=== PATIENT | female | born 1955 | race Caucasian/White ===

== ENCOUNTER 2018-05-25 16:17 | Inpatient (IN) | payer MEDICARE, OTHER ==
[2018-05-25] MEDS ORDERED: METHYLPREDNISOLONE PF 125MG/VIAL IVP ONE (16:18)
[2018-05-25] MEDS ORDERED: 0.9 % SODIUM CHLORIDE 1000ML 1,000 ML IV PRN (16:18)
[2018-05-25] MEDS ORDERED: IPRATROPIUM/ALBUTEROL (0.5MG/3MG) NEB INH ONE (16:18)
--- NOTE | 2018-05-25 16:20 | Emergency Department Record ---
History of Present Illness - General Chief Complaint: Shortness of breath Stated Complaint: BELLA Time Seen by Provider: 05/25/18 16:18 - History of Present Illness Initial Comments: dyspnea and cough which started 7 days ago and she is coughing up yellow sputum and history of smoking and she is cutting back to 3 cigs per day and has a 60 pack year history of smoking. Primary Dr. Rodriguez - Related Data Home Medications Medication Instructions Recorded Confirmed Last Taken Albuterol Sulfate [Ventolin Hfa] 1 - 2 puff IH .EVERY 4-6 HOURS PRN 05/25/1801/05 Unknown Budesonide/Formoterol Fumarate 10.2 gm IH BID 05/25/18 05/25/18 Unknown [Symbicort 160-4.5 Mcg Inhaler] Cholecalciferol (Vitamin D3) 2,000 unit PO DAILY 05/25/18 05/25/18 Unknown [Vitamin D3] Hydrocodone/APAP 7.5/325Mg [[place] 1 each PO Q6H PRN 05/25/18 05/25/18 Unknown 7.5MG/325Mg] Montelukast Sodium [Singulair] 10 mg PO QHS 05/25/18 05/25/18 Unknown Allergies Allergy/AdvReac Type Severity Reaction Status Date / Time No Known Drug Allergies Allergy Verified 05/25/18 16:26 Review of Systems Reviewed: No additional complaints except as noted below Constitutional: Reports: As per HPI. Denies: Chills, Fever, Malaise, Night sweats, Weakness, Weight change Eyes: Reports: As per HPI. Denies: Eye discharge, Eye pain, Photophobia, Vision change ENT: Reports: As per HPI. Denies: Congestion, Dental pain, Ear pain, Epistaxis , Hearing loss, Throat pain Respiratory: Reports: As per HPI, Cough, Dyspnea, Wheezes. Denies: Hemoptysis, Stridor Cardiovascular: Reports: As per HPI. Denies: Arrhythmia, Chest pain, Dyspnea on exertion, Edema, Murmurs, Orthopnea, Palpitations, Paroxysmal nocturnal dyspnea, Rheumatic Fever, Syncope Endocrine: Reports: As per HPI. Denies: Fatigue, Heat or cold intolerance, Polydipsia, Polyuria Gastrointestinal: Reports: As per HPI. Denies: Abdominal pain, Constipation, Diarrhea, Hematemesis, Hematochezia, Melena, Nausea, Vomiting Genitourinary: Reports: As per HPI. Denies: Abnormal menses, Discharge, Dyspareunia, Dysuria, Frequency, Hematuria, Incontinence, Retention, Urgency Musculoskeletal: Reports: As per HPI. Denies: Arthralgia, Back pain, Gout, Joint swelling, Myalgia, Neck pain Skin: Reports: As per HPI. Denies: Bruising, Change in color, Change in hair/ nails, Lesions, Pruritus, Rash Neurological: Reports: As per HPI. Denies: Abnormal gait, Confusion, Headache, Numbness, Paresthesias, Seizure, Tingling, Tremors, Vertigo, Weakness Psychiatric: Reports: As per HPI. Denies: Anxiety, Auditory hallucinations, Depression, Homicidal thoughts, Suicidal thoughts, Visual hallucinations Hematological/Lymphatic: Reports: As per HPI. Denies: Anemia, Blood Clots, Easy bleeding, Easy bruising, Swollen glands Physical Exam - General General Appearance: Alert, Oriented x3, Cooperative, Moderate distress - Head Head exam: Normal inspection - Eye Eye exam: Normal appearance, PERRL Pupils: Normal accommodation - ENT ENT exam: Normal exam, Mucous membranes moist, Normal external ear exam, Normal orophraynx, TM's normal bilaterally Ear exam: Normal external inspection. negative: External canal tenderness Nasal Exam: Normal inspection. negative: Discharge, Sinus tenderness Mouth exam: Normal external inspection, Tongue normal Teeth exam: Normal inspection. negative: Dental caries Throat exam: Normal inspection. negative: Tonsillar erythema, Tonsillar exudate - Neck Neck exam: Normal inspection, Full ROM. negative: Tenderness - Respiratory Respiratory exam: Wheezes. negative: Respiratory distress - Cardiovascular Cardiovascular Exam: Regular rate, Normal rhythm, Normal heart sounds - GI/Abdominal GI/Abdominal exam: Soft, Normal bowel sounds. negative: Tenderness - Rectal Rectal exam: Deferred - exam: Deferred - Extremities Extremities exam: Normal inspection, Full ROM, Normal capillary refill. negative: Tenderness - Back Back exam: Reports: Normal inspection, Full ROM. Denies: Muscle spasm, Rash noted, Tenderness - Neurological Neurological exam: Alert, Normal gait, Oriented X3, Reflexes normal - Psychiatric Psychiatric exam: Normal affect, Normal mood - Skin Skin exam: Dry, Intact, Normal color, Warm Course - Reevaluation(s) Reevaluation #1: 05/25/18 19:24 BNP 597 probably from right sided heart failure 05/25/18 19:24 Reevaluation #2: discussed case with Dr. Chavarria and will admit 05/25/18 19:26 Medical Decision Making - Data Complexity MDM Data: Labs Ordered and/or Reviewed (wbc 14,600), X-Ray Ordered and/or Reviewed (CTA chest no PE and interstitual changes consistent with pneumonia and she also has adenopathy in mediastinum) - Lab Data Result diagrams: 05/25/18 16:25 05/25/18 16:18 Disposition Clinical Impression: Tobacco abuse COPD (chronic obstructive pulmonary disease) with emphysema Qualifiers: Emphysema type: panlobular Qualified Code(s): J43.1 - Panlobular emphysema Pneumonia Qualifiers: Pneumonia type: due to unspecified organism Laterality: bilateral Lung location : lower lobe of lung Qualified Code(s): J18.1 - Lobar pneumonia, unspecified organism Decision to Admit: Admit from ER Forms: Patient Portal Access Time of Disposition: 19:26 Quality - Quality Measures Quality Measures: N/A - Blood Pressure Screening Does Patient Have Any of the Following: No Blood Pressure Classification: Pre-Hypertensive BP Reading Systolic Measurement: 134 Diastolic Measurement: 87 Screening for High Blood Pressure: < Pre-Hypertensive BP, F/U Documented > [ [id number]] Pre-Hypertensive Follow-up Interventions: Referral to alternative/primary care provider.
[2018-05-25 16:52] LABS: HEMOGLOBIN 14.1 gm/dl (11.6-16.0); MEAN CELL VOLUME 91.7 fl (81-97); MEAN CORPUSCULAR HEMOGLOBIN 29.4 pg (27-33); MEAN PLATELET VOLUME 8.3 fl (7.4-10.4); PLATELET COUNT 387 K/uL (130-400); RED CELL DISTRIBUTION WIDTH 15.4 % (11.5-14.5); WHITE BLOOD COUNT W/O DIFF 14.6 K/uL (4.2-12.2)
[2018-05-25 16:58] LABS: BLOOD UREA NITROGEN 23 mg/dL (8-23); CREATININE 0.7 mg/dL (0.5-0.9); EST GLOMERULAR FILTRATION RATE > 60 mL/min
[2018-05-25] MEDS ORDERED: ALBUTEROL SULFATE (0.083%) 2.5 MG/3 ML NEB INH ONE (16:58)
[2018-05-25 17:01] LABS: GLUCOSE,RANDOM 162 mg/dL (74-109)
[2018-05-25 17:05] LABS: PARTIAL THROMBOPLASTIN TIME 29.1 SECONDS (24.5-39.1)
[2018-05-25] MEDS ORDERED: ASPIRIN 81 MG CHEWABLE TABLET PO ONE (18:42)
[2018-05-25] MEDS ORDERED: CEFTRIAXONE SODIUM 1 GM in 0.9 % SODIUM CHLORIDE 100ML 100 ML IVPB ONE (19:10)
[2018-05-25] MEDS ORDERED: AZITHROMYCIN 500 MG TABLET PO ONE (19:10)
[2018-05-25] MEDS ORDERED: ACETAMINOPHEN 500 MG TABLET PO PRN (20:10)
[2018-05-25] MEDS: CEFTRIAXONE SODIUM 1 GM in 0.9 % SODIUM CHLORIDE 100ML 100 ML IVPB SCH (21:20)
[2018-05-25] MEDS: METHYLPREDNISOLONE PF 125MG/VIAL IVP SCH (21:44)
[2018-05-25] MEDS: MONTELUKAST SODIUM 10MG TABLET PO SCH (22:30)
[2018-05-25] MEDS: IPRATROPIUM/ALBUTEROL (0.5MG/3MG) NEB INH SCH (22:40)
[2018-05-25] MEDS ORDERED: IBUPROFEN 400 MG TABLET PO PRN (22:57)
[2018-05-26] MEDS: METHYLPREDNISOLONE PF 125MG/VIAL IVP SCH ×3 (04:10→20:30)
[2018-05-26] MEDS: IPRATROPIUM/ALBUTEROL (0.5MG/3MG) NEB INH SCH ×5 (06:11→22:12)
[2018-05-26 06:14] LABS: BASO % 0.2 % (0-6); HEMATOCRIT 43.9 % (35.0-47.0); HEMOGLOBIN 13.7 gm/dl (11.6-16.0); LYMPH % 8.2 % (16-45); MEAN CELL VOLUME 94.6 fl (81-97); MEAN CORPUSCULAR HEMOGLOBIN 29.5 pg (27-33); MEAN CORPUSCULAR HGB CONC 31.2 g/dl (32-36); MEAN PLATELET VOLUME 8.3 fl (7.4-10.4); MONO % 2.9 % (0-9); PLATELET COUNT 352 K/uL (130-400); RED BLOOD COUNT 4.64 M/uL (3.80-5.40); RED CELL DISTRIBUTION WIDTH 15.5 % (11.5-14.5); WHITE BLOOD COUNT W/O DIFF 13.3 K/uL (4.2-12.2)
[2018-05-26 06:27] LABS: BLOOD UREA NITROGEN 26 mg/dL (8-23); CREATININE 0.7 mg/dL (0.5-0.9); EST GLOMERULAR FILTRATION RATE > 60 mL/min; GLUCOSE,RANDOM 161 mg/dL (74-109)
[2018-05-26] MEDS: ALBUTEROL SULFATE (0.083%) 2.5 MG/3 ML NEB INH PRN ×2 (08:28→20:00)
[2018-05-26] MEDS: CEFTRIAXONE SODIUM 1 GM in 0.9 % SODIUM CHLORIDE 100ML 100 ML IVPB SCH ×2 (08:44→20:17)
[2018-05-26] MEDS ORDERED: AZITHROMYCIN 500 MG TABLET PO SCH (10:00)
[2018-05-26] MEDS: ENOXAPARIN 40 MG/0.4 ML SYR SC SCH (10:26)
[2018-05-26] MEDS ORDERED: 0.9 % SODIUM CHLORIDE 1000ML 1,000 ML IV ONE (10:56)
--- NOTE | 2018-05-26 11:07 | History & Physical ---
History of Present Illness - Date of Service Date of Service for History & Physical: 05/26/18 - History of Present Illness Admitting Diagnosis: copd with exacerbation. pneumonia bilateral. tobacco use disorder History of Present Illness: PMHx: COPD, Nicotine dependence, Chronic pain. Pt is a poor historian. ED course: She states that her sister got sick and roughly 4-5 days later she started to get sick. She initially complained of cough with white sputum, pharyngitis, runny nose. She states that she came to the ED when she started to feel SOB and had trouble breathing. She smokes roughly 4-5 cigarettes daily. She has gone down from 08/22 PPD. Vitals: P:120, RR: 22, O2: 76 on RA, T: afebrile Labs: D-Dimer +, Increased anion gap, Increased WBC 14.6, Increased BNP Imaging: CT lungs showed possible b/l infiltrates, no PE Given: 4L NC, Ceftriaxone, Azithromycin, Solumedrol, Duonebs Admitted for hypoxia 09/22 to COPD exacerbation 2 to b/l PNA 05/26/18: Today pt still having SOB, but states that she feels much better than yesterday. She states that yesterday she couldn't even talk but today is able to have a conversion. No other complaints. Travel Screening - Travel/Exposure Within Last 30 Days Have you traveled within the last 30 days?: No - Travel/Exposure Within Last Year Have you traveled outside the [place] in the last year?: No - Additonal Travel Details Have you been exposed to anyone with a communicable illness?: No - Travel Symptoms Symptom Screening: None Review of Systems Constitutional: Denies: Chills, Fever Eyes: Denies: Vision change ENT: Reports: Congestion, Throat pain. Denies: Ear pain Respiratory: Reports: Cough, Dyspnea, Wheezes. Denies: Hemoptysis, Stridor Cardiovascular: Denies: Arrhythmia, Chest pain, Edema, Murmurs, Palpitations, Paroxysmal nocturnal dyspnea, Rheumatic Fever, Syncope Endocrine: Denies: Polyuria Gastrointestinal: Denies: Abdominal pain, Constipation, Diarrhea, Hematemesis, Nausea, Vomiting Genitourinary: Denies: Dysuria, Frequency Musculoskeletal: Reports: Myalgia (b/l arms, chronic). 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 - ENDOCRINE Hx Endocrine Disorders: No Hx Diabetes: No Hx Thyroid Disease: No - MUSCULOSKELETAL Hx Musculoskeletal Disorders: No - PSYCH Hx Psych Problems: No - HEMATOLOGY/ONCOLOGY Hx Hematology/Oncology Disorders: No Family Medical History Any Significant Family History?: No H&P Meds/Allergies - Allergies Allergies: Allergies Allergy/AdvReac Type Severity Reaction Status Date / Time No Known Drug Allergies Allergy Verified 05/25/18 16:26 - Home Medications Home Medications Medication Instructions Recorded Confirmed Last Taken Albuterol Sulfate [Ventolin Hfa] 1 - 2 puff IH .EVERY 4-6 HOURS PRN 05/25/1801/05 Unknown Budesonide/Formoterol Fumarate 10.2 gm IH BID 05/25/18 05/25/18 Unknown [Symbicort 160-4.5 Mcg Inhaler] Cholecalciferol (Vitamin D3) 2,000 unit PO DAILY 05/25/18 05/25/18 Unknown [Vitamin D3] Hydrocodone/APAP 7.5/325Mg [[place] 1 each PO Q6H PRN 05/25/18 05/25/18 Unknown 7.5MG/325Mg] Montelukast Sodium [Singulair] 10 mg PO QHS 05/25/18 05/25/18 Unknown - Active Medications Active Medications: Current Medications Acetaminophen (Tylenol 500mg Tab) 500 mg PO Q6H PRN PRN Reason: PAIN - MILD(1-4)/FEVER Hydrocodone Bitart/Acetaminophen ([place] 7.5mg/325mg) 1 each PO Q4H PRN PRN Reason: PAIN - MILD(1-4)/FEVER Albuterol Sulfate () 2.5 mg INH RESP.Q1H PRN PRN Reason: DIFFICULTY IN BREATHING Last Admin: 05/26/18 08:28 Dose: 2.5 mg Albuterol/Ipratropium (Duoneb) 3 ml INH RESP.Q4H.[place] [facility] Last Admin: 05/26/18 10:08 Dose: 3 ml Azithromycin (Zithromax) 250 mg PO DAILY [facility] Enoxaparin Sodium (Lovenox) 40 mg SC DAILY [facility] Last Admin: 05/26/18 10:26 Dose: 40 mg Ceftriaxone Sodium 1 gm/ (Sodium Chloride) 100 mls @ 100 mls/hr IVPB Q12H [facility] Stop: 05/30/18 20:11 Last Admin: 05/26/18 08:44 Dose: 100 mls/hr Sodium Chloride () 1,000 mls @ 83 mls/hr IV .Q12H3M ONE Stop: 05/26/18 22:58 Ibuprofen (Motrin 400mg) 800 mg PO Q8H PRN PRN Reason: PAIN - MILD TO MODERATE (1-7) Methylprednisolone Sodium Succinate (Solu-Medrol) 60 mg IVP Q8H [facility] Stop: 05/27/18 00:00 Last Admin: 05/26/18 04:10 Dose: 60 mg Montelukast Sodium (Singulair) 10 mg PO QHS [facility] Last Admin: 05/25/18 22:30 Dose: 10 mg Prednisone (Prednisone 20mg) 60 mg PO DAILYWM [facility] Physical Exam - Vital Signs Vital Signs: Vital Signs - Last 24 Hrs Temp Pulse Pulse Pulse Resp BP BP 05/26/18 10:09 97 H 20 05/26/18 09:34 91 H 24 05/26/18 09:24 98.1 F 100 H 24 05/26/18 08:54 107 H 22 05/26/18 08:28 88 22 05/26/18 06:52 115 H 22 05/26/18 06:10 28 H 05/26/18 06:00 98.3 F 101 H 32 H 133/78 05/26/18 00:00 98.2 F 116 H 24 118/80 05/25/18 22:41 112 H 32 H 05/25/18 21:30 26 H 05/25/18 21:00 118 H 28 H 05/25/18 19:46 117 H 28 H 05/25/18 18:59 126 H 30 H 05/25/18 18:05 121 H 22 135/90 05/25/18 17:02 126 H 20 05/25/18 16:34 114 H 24 05/25/18 16:30 98.6 F 05/25/18 16:18 120 H 22 134/87 BP Pulse Ox 05/26/18 10:09 94 L 05/26/18 09:34 92 L 05/26/18 09:24 136/75 91 L 05/26/18 08:54 05/26/18 08:28 96 05/26/18 06:52 98 05/26/18 06:10 94 L 05/26/18 06:00 80 L 05/26/18 00:00 96 05/25/18 22:41 94 L 05/25/18 21:30 94 L 05/25/18 21:00 05/25/18 19:46 132/75 92 L 05/25/18 18:59 92 L 05/25/18 18:05 94 L 05/25/18 17:02 95 05/25/18 16:34 94 L 05/25/18 16:30 05/25/18 16:18 76 L - General General Appearance: Alert, Oriented x3, Cooperative, Mild distress (with conversion will increase in coughing) - Head Head exam: Normal inspection - Eye Eye exam: Normal appearance, EOMI. negative: Scleral icterus Pupils: Normal accommodation - ENT ENT exam: Normal exam, Mucous membranes moist, Normal external ear exam. negative: Normal orophraynx (erythema pharynx) Ear exam: Normal external inspection. negative: External canal tenderness Nasal Exam: Normal inspection. negative: Discharge, Sinus tenderness Mouth exam: Normal external inspection, Tongue normal - Neck Neck exam: Normal inspection, Full ROM. negative: Tenderness - Respiratory Respiratory exam: Prolonged expiratory, Wheezes (throughout all lung kennedy). negative: Decreased breath sounds, Respiratory distress - Cardiovascular Cardiovascular Exam: Normal rhythm, Normal heart sounds, Tachycardia - GI/Abdominal GI/Abdominal exam: Soft, Hypoactive bowel sounds. negative: Tenderness - Rectal Rectal exam: Deferred - exam: Deferred - Extremities Extremities exam: Normal inspection, Full ROM, Normal capillary refill. negative: Tenderness - Back Back exam: Reports: Normal inspection, Full ROM. Denies: Rash noted - Neurological Neurological exam: Alert, Oriented X3 - Psychiatric Psychiatric exam: Normal affect, Normal mood - Skin Skin exam: Dry, Intact, Normal color, Warm Results - Labs Result Diagrams: 05/26/18 06:05 05/26/18 06:05 Labs Last 24 Hours: Laboratory Results - last 24 hr 05/25/18 05/25/18 05/25/18 16:18 16:25 16:25 WBC 14.6 H RBC 4.80 Hgb 14.1 Hct 44.0 MCV 91.7 MCH 29.4 MCHC 32.0 RDW 15.4 H Plt Count 387 MPV 8.3 Neutrophils % 83.0 H Band Neutrophils % Lymphocytes % Monocytes % Eosinophils % Not Reportable Basophils % Not Reportable Lymphocytes 10.0 L Monocytes 7.0 Basophils Eosinophil Count APTT 29.1 D-Dimer 0.74 H Sodium 140 Potassium 4.2 Chloride 94 L Carbon Dioxide 29.0 Anion Gap 17.0 H BUN 23 Creatinine 0.7 Estimated GFR > 60 Random Glucose 162 H Calcium 9.4 Troponin T < 0.010 NT-Pro-B Natriuret Pep 05/25/18 05/25/18 05/25/18 16:35 16:36 17:52 WBC RBC Hgb Hct MCV MCH MCHC RDW Plt Count MPV Neutrophils % Band Neutrophils % Lymphocytes % Monocytes % Eosinophils % Basophils % Lymphocytes Monocytes Basophils Eosinophil Count APTT D-Dimer Cancelled Sodium Potassium Chloride Carbon Dioxide Anion Gap BUN Creatinine Estimated GFR Random Glucose Calcium Troponin T Cancelled NT-Pro-B Natriuret Pep 597.20 H 05/26/18 05/26/18 06:05 06:05 WBC 13.3 H RBC 4.64 Hgb 13.7 Hct 43.9 MCV 94.6 MCH 29.5 MCHC 31.2 L RDW 15.5 H Plt Count 352 MPV 8.3 Neutrophils % 86.0 H Band Neutrophils % 2.0 Lymphocytes % 8.2 L Monocytes % 2.9 Eosinophils % 0.0 Basophils % 0.2 Lymphocytes 9.0 L Monocytes 3.0 Basophils 0.0 Eosinophil Count 0.0 APTT D-Dimer Sodium 145 Potassium 4.8 H Chloride 101 Carbon Dioxide 35.0 H Anion Gap 9.0 BUN 26 H Creatinine 0.7 Estimated GFR > 60 Random Glucose 161 H Calcium 9.6 Troponin T NT-Pro-B Natriuret Pep VTE H&P Assessment - Risk for VTE Risk for VTE: Yes Risk Level: High Risk Assessment Date: 05/26/18 Risk Assessment Time: 11:15 VTE Orders Placed or Will Be Placed: Yes Plan - Inpatient Certification Inpatient Certification: Admit to inpatient care: Based on my medical assessment, after consideration of patient's risk factors (age, co-morbidities and patient presenting symptoms and acuity), I expect that this patient will remain in the hospital greater than or equal to two midnights and that the services needed warrant inpatient care because: Patient Risk Factors: [] Estimated length of stay: [] The patient may reasonably be expected to be discharged or transferred to a hospital within 96 hours after admission to [facility]. Services needed: [] Post hospital care (if known): [] I certify that my determination is in accordance with my understanding of Medicare requirements for reasonable and necessary inpatient services. - Detailed Diagnosis and Plan (1) Pneumonia Current Visit: Yes Status: Acute Qualifiers: Pneumonia type: due to unspecified organism Laterality: bilateral Lung location: lower lobe of lung Qualified Code(s): J18.1 - Lobar pneumonia, unspecified organism Base Code: J18.9 - PNEUMONIA, UNSPECIFIED ORGANISM Priority: High Comment: 05/25/18 - Rocephin 1g Q 12 hours - Azithromycin 500mg x 2 doses given, switch to 250mg for next dose. - O2 with venti mask, given that pt is mouth breather. - Keep 02 sats b/t 88-92% given h/o COPD - Gentle fluids @ 83ml/hr, monitor for fluid overload given mildly elevated BNP - although pt doesn't have h/o CHF and no swelling on exam. - Rpt CXR ordered. (2) COPD with exacerbation Current Visit: Yes Status: Acute Base Code: J44.1 - CHRONIC OBSTRUCTIVE PULMONARY DISEASE W (ACUTE) EXACERBATION Priority: High Comment: 05/25/18 - Continue duoneb and albuterol per resp - Solumedrol x 48 hours. - Switch to prednisone tomorrow. (3) Tobacco abuse Current Visit: Yes Status: Chronic Base Code: Z72.0 - TOBACCO USE Comment : 05/25/18 - No nicotine patches needed given 4-5 ciggs daily. (4) Chronic pain Current Visit: Yes Status: Chronic Base Code: G89.29 - OTHER CHRONIC PAIN Priority: Medium Comment: 05/25/18 - Pt is poor historian and just claims b/l arm pain. - Continue home meds as prescribed. - Iburpofen also available PRN - Disposition Home once stable and transitioned to oral medications.
[2018-05-26] MEDS: HYDROCODONE/APAP 7.5/325MG TABLET PO PRN (20:40)
[2018-05-26] MEDS: FLUTICASONE PROPIONATE 50MCG NASAL 16 GM BTL SCH (22:16)
[2018-05-26] MEDS: GUAIFENESIN 1,200 MG TABLET PO SCH (22:16)
[2018-05-26] MEDS: MONTELUKAST SODIUM 10MG TABLET PO SCH (22:16)
[2018-05-27] MEDS: ALBUTEROL SULFATE (0.083%) 2.5 MG/3 ML NEB INH PRN (04:46)
[2018-05-27] MEDS: IPRATROPIUM/ALBUTEROL (0.5MG/3MG) NEB INH SCH ×5 (06:14→23:25)
[2018-05-27 06:24] LABS: BASO % 0.2 % (0-6); HEMATOCRIT 41.8 % (35.0-47.0); HEMOGLOBIN 12.5 gm/dl (11.6-16.0); LYMPH % 9.3 % (16-45); MEAN CELL VOLUME 96.5 fl (81-97); MEAN CORPUSCULAR HEMOGLOBIN 28.9 pg (27-33); MEAN CORPUSCULAR HGB CONC 29.9 g/dl (32-36); MEAN PLATELET VOLUME 8.1 fl (7.4-10.4); MONO % 4.9 % (0-9); PLATELET COUNT 335 K/uL (130-400); RED BLOOD COUNT 4.33 M/uL (3.80-5.40); RED CELL DISTRIBUTION WIDTH 15.6 % (11.5-14.5); WHITE BLOOD COUNT W/O DIFF 17.3 K/uL (4.2-12.2)
[2018-05-27 06:32] LABS: BLOOD UREA NITROGEN 33 mg/dL (8-23); CREATININE 0.6 mg/dL (0.5-0.9); EST GLOMERULAR FILTRATION RATE > 60 mL/min; GLUCOSE,RANDOM 171 mg/dL (74-109)
[2018-05-27] MEDS: PREDNISONE 20 MG TAB PO SCH (09:18)
[2018-05-27] MEDS: ENOXAPARIN 40 MG/0.4 ML SYR SC SCH (09:18)
[2018-05-27] MEDS: AZITHROMYCIN 250 MG TABLET PO SCH (09:18)
[2018-05-27] MEDS: CEFTRIAXONE SODIUM 1 GM in 0.9 % SODIUM CHLORIDE 100ML 100 ML IVPB SCH ×2 (09:18→21:40)
[2018-05-27] MEDS: FLUTICASONE PROPIONATE 50MCG NASAL 16 GM BTL SCH (09:28)
[2018-05-27] MEDS: GUAIFENESIN 1,200 MG TABLET PO SCH (10:13)
[2018-05-27] MEDS: LEVALBUTEROL HCL 1.25 MG/3 ML INH PRN ×3 (11:43→20:29)
[2018-05-27] MEDS: BUDESONIDE 0.5 MG/2 ML INH SCH ×2 (11:43→17:55)
[2018-05-27] MEDS ORDERED: SPS 15 GM/60 ML PO ONE (12:47)
--- NOTE | 2018-05-27 12:58 | Physician Progress Note ---
Subjective - Date Date of Physician Progress Note: 05/27/18 - Subjective Subjective Comment: Pt states that she is doing better than yesterday but is still SOB with ambulation. Objective - Vital Signs Vital Signs: Vital Signs - Last 24 Hrs Temp Pulse Pulse Pulse Resp BP BP 05/27/18 11:43 101 H 20 05/27/18 09:35 98.2 F 107 H 28 H 153/82 05/27/18 09:31 99 H 22 05/27/18 09:28 99 H 22 05/27/18 09:00 110 H 28 H 05/27/18 06:00 98.3 F 102 H 28 H 140/81 05/27/18 04:48 112 H 24 05/26/18 23:49 98.3 F 104 H 28 H 131/69 05/26/18 22:14 113 H 28 H 05/26/18 20:02 109 H 22 05/26/18 20:00 99.1 F 110 H 22 133/70 05/26/18 18:00 98.6 F 122 H 28 H 147/70 05/26/18 17:12 89 22 05/26/18 14:54 101 H 20 05/26/18 14:00 98.7 F 112 H 28 H 119/60 Pulse Ox 05/27/18 11:43 96 05/27/18 09:35 89 L 05/27/18 09:31 91 L 05/27/18 09:28 91 L 05/27/18 09:00 05/27/18 06:00 95 05/27/18 04:48 92 L 05/26/18 23:49 89 L 05/26/18 22:14 93 L 05/26/18 20:02 92 L 05/26/18 20:00 91 L 05/26/18 18:00 90 L 05/26/18 17:12 96 05/26/18 14:54 92 L 05/26/18 14:00 92 L - General General Appearance: Alert, Oriented x3, Cooperative, No acute distress - Head Head exam: Normal inspection - Eye Eye exam: Normal appearance, EOMI. negative: Scleral icterus Pupils: Normal accommodation - ENT ENT exam: Normal exam, Mucous membranes moist, Normal external ear exam. negative: Normal orophraynx (erythema pharynx) Ear exam: Normal external inspection. negative: External canal tenderness Nasal Exam: Normal inspection. negative: Discharge, Sinus tenderness Mouth exam: Normal external inspection, Tongue normal Teeth exam: Normal inspection. negative: Dental caries Throat exam: Normal inspection. negative: Tonsillar erythema, Tonsillar exudate - Neck Neck exam: Normal inspection, Full ROM. negative: Tenderness - Respiratory Respiratory exam: Prolonged expiratory, Wheezes (throughout all lung kennedy). negative: Decreased breath sounds, Rales, Respiratory distress - Cardiovascular Cardiovascular Exam: Normal rhythm, Normal heart sounds, Tachycardia - GI/Abdominal GI/Abdominal exam: Soft, Normal bowel sounds. negative: Tenderness - Rectal Rectal exam: Deferred - exam: Deferred - Extremities Extremities exam: Normal inspection, Full ROM, Normal capillary refill. negative: Tenderness - Back Back exam: Reports: Normal inspection, Full ROM. Denies: Rash noted - Neurological Neurological exam: Alert, Oriented X3 - Psychiatric Psychiatric exam: Normal affect, Normal mood - Skin Skin exam: Dry, Intact, Normal color, Warm Assessment and Plan - Assessment and Plan (1) Hyperkalemia Current Visit: Yes Status: Acute Base Code: E87.5 - HYPERKALEMIA Comment: - K+ 5.1 - Continue nebs per resp. - Kayexylate 15mg once. - Rpt level in AM. (2) Pneumonia Current Visit: Yes Status: Acute Qualifiers: Pneumonia type: due to unspecified organism Laterality: bilateral Lung location: lower lobe of lung Qualified Code(s): J18.1 - Lobar pneumonia, unspecified organism Base Code: J18.9 - PNEUMONIA, UNSPECIFIED ORGANISM Priority: High Comment: - Rocephin 1g Q 12 hours - Azithromycin 500mg x 2, 250mg x1, continue 250mg for 3 more days - O2 PRN - Keep 02 sats b/t 88-92% given h/o COPD - Gentle fluids at 100ml/hr. - Rpt CXR ordered. (3) COPD with exacerbation Current Visit: Yes Status: Acute Base Code: J44.1 - CHRONIC OBSTRUCTIVE PULMONARY DISEASE W (ACUTE) EXACERBATION Priority: High Comment: - Continue duoneb and albuterol per resp - Switch to prednisone from solumedrol today. (4) Tobacco abuse Current Visit: Yes Status: Chronic Base Code: Z72.0 - TOBACCO USE Comment : - No nicotine patches needed given 4-5 ciggs daily. (5) Chronic pain Current Visit: Yes Status: Chronic Base Code: G89.29 - OTHER CHRONIC PAIN Priority: Medium Comment: - Pt is poor historian and just claims b/l arm pain. - Continue home meds as prescribed. - Iburpofen also available PRN - Disposition Disposition: Home once stable and transitioned to oral medications. Results - Labs Result Diagrams: 05/27/18 06:10 05/27/18 06:10 Labs Last 24 Hours: Laboratory Results - last 24 hr 05/27/18 05/27/18 06:10 06:10 WBC 17.3 H RBC 4.33 Hgb 12.5 Hct 41.8 MCV 96.5 MCH 28.9 MCHC 29.9 L RDW 15.6 H Plt Count 335 MPV 8.1 Neutrophils % 84.0 H Band Neutrophils % 2.0 Lymphocytes % 9.3 L Monocytes % 4.9 Eosinophils % 0.0 Basophils % 0.2 Lymphocytes 10.0 L Monocytes 4.0 Basophils 0.0 Eosinophil Count 0.0 Sodium 145 Potassium 5.1 H Chloride 103 Carbon Dioxide 35.0 H Anion Gap 7.0 BUN 33 H Creatinine 0.6 Estimated GFR > 60 Random Glucose 171 H Calcium 9.4 DVT/PE Assessment - Risk for VTE Risk for VTE: No Risk Level: High Risk Assessment Date: 05/26/18 Risk Assessment Time: 11:15 VTE Orders Placed or Will Be Placed: Yes - Active Medicaitons Current Medications: Current Medications Acetaminophen (Tylenol 500mg Tab) 500 mg PO Q6H PRN PRN Reason: PAIN - MILD(1-4)/FEVER Hydrocodone Bitart/Acetaminophen ([place] 7.5mg/325mg) 1 each PO Q4H PRN PRN Reason: PAIN - MILD(1-4)/FEVER Last Admin: 05/26/18 20:40 Dose: 1 each Albuterol/Ipratropium (Duoneb) 3 ml INH RESP.Q4H.[facility] Last Admin: 05/27/18 09:28 Dose: 3 ml Azithromycin (Zithromax) 250 mg PO DAILY [facility] Last Admin: 05/27/18 09:18 Dose: 250 mg Budesonide (Pulmicort) 0.5 mg INH RESP.BID [facility] Last Admin: 05/27/18 11:43 Dose: 0.5 mg Enoxaparin Sodium (Lovenox) 40 mg SC DAILY [facility] Last Admin: 05/27/18 09:18 Dose: 40 mg Fluticasone Propionate (Flonase) 2 spray NA DAILY [facility] Last Admin: 05/27/18 09:28 Dose: 2 spray Guaifenesin (Robitussin Dm) 10 ml PO Q4H PRN PRN Reason: COUGH Ceftriaxone Sodium 1 gm/ (Sodium Chloride) 100 mls @ 100 mls/hr IVPB Q12H [facility] Stop: 05/30/18 20:11 Last Admin: 05/27/18 09:18 Dose: 100 mls/hr Ibuprofen (Motrin 400mg) 800 mg PO Q8H PRN PRN Reason: PAIN - MILD TO MODERATE (1-7) Levalbuterol HCl (Xopenex (1.25mg/3ml)) 1.25 mg INH RESP.Q2H PRN PRN Reason: DIFFICULTY IN BREATHING Last Admin: 05/27/18 11:43 Dose: 1.25 mg Montelukast Sodium (Singulair) 10 mg PO QHS [facility] Last Admin: 05/26/18 22:16 Dose: 10 mg Prednisone (Prednisone 20mg) 60 mg PO DAILYWM [facility] Last Admin: 05/27/18 09:18 Dose: 60 mg Sodium Polystyrene Sulfonate (Kayexelate) 15 gm PO NOW ONE Stop: 05/27/18 12:48 AMI Plan - Labs Result Diagrams: 05/27/18 06:10 05/27/18 06:10
[2018-05-27] MEDS ORDERED: 0.9 % SODIUM CHLORIDE 1000ML 1,000 ML IV ONE (12:59)
[2018-05-27] MEDS ORDERED: LORAZEPAM 2 MG/ML VIAL IV ONE ×2 (15:50→21:35)
[2018-05-27] MEDS: GUAIFENESIN/D-METH. 10 ML UDC PO PRN ×2 (16:03→21:42)
[2018-05-27] MEDS: HYDROCODONE/APAP 7.5/325MG TABLET PO PRN (21:43)
[2018-05-27] MEDS: PHENOL SORE THROAT SPRAY 177 ML BTL MM PRN (21:43)
[2018-05-27] MEDS: MONTELUKAST SODIUM 10MG TABLET PO SCH (21:43)
[2018-05-28 01:23] LABS: ARTERIAL BLD GAS O2 SATURATION 97.9 % (95-98); ARTERIAL BLOOD GAS BASE EXCESS 7.7 mmol/L (-2 - 3); ARTERIAL BLOOD GAS HCO3 36.1 mmol/L (18-23); CARBOXYHEMOGLOBIN 0.9 % (0-1.5); TOTAL HEMOGLOBIN 11.8 g/dl (11.6-16)
[2018-05-28 01:24] LABS: ALLEN TEST PASS; ARTERIAL BLOOD GAS PCO2 75.2 mmHg (35-48)
[2018-05-28 02:47] LABS: ARTERIAL BLD GAS O2 SATURATION 89.1 % (95-98); ARTERIAL BLOOD GAS BASE EXCESS 8.8 mmol/L (-2 - 3); ARTERIAL BLOOD GAS HCO3 36.7 mmol/L (18-23); ARTERIAL BLOOD GAS pH 7.33 (7.35-7.45); CARBOXYHEMOGLOBIN 0.9 % (0-1.5); METHEMOGLOBIN 0.3 % (0.0-1.5); O2 HEMOGLOBIN 88.1 % vol (94-99); TOTAL HEMOGLOBIN 11.7 g/dl (11.6-16)
[2018-05-28 02:48] LABS: ALLEN TEST PASS; ARTERIAL BLOOD GAS PCO2 71.7 mmHg (35-48)
[2018-05-28] MEDS: BUDESONIDE 0.5 MG/2 ML INH SCH ×3 (05:12→21:35)
[2018-05-28] MEDS: IPRATROPIUM/ALBUTEROL (0.5MG/3MG) NEB INH SCH ×5 (05:12→21:35)
[2018-05-28 06:54] LABS: HEMATOCRIT 39.7 % (35.0-47.0); HEMOGLOBIN 11.6 gm/dl (11.6-16.0); MEAN CORPUSCULAR HEMOGLOBIN 28.6 pg (27-33); MEAN CORPUSCULAR HGB CONC 29.2 g/dl (32-36); PLATELET COUNT 362 K/uL (130-400); RED BLOOD COUNT 4.05 M/uL (3.80-5.40); RED CELL DISTRIBUTION WIDTH 15.7 % (11.5-14.5); WHITE BLOOD COUNT W/O DIFF 13.6 K/uL (4.2-12.2)
[2018-05-28 07:07] LABS: BLOOD UREA NITROGEN 32 mg/dL (8-23); CREATININE 0.6 mg/dL (0.5-0.9); EST GLOMERULAR FILTRATION RATE > 60 mL/min; GLUCOSE,RANDOM 98 mg/dL (74-109)
[2018-05-28 07:09] LABS: PLATELET ESTIMATE NORMAL (NORMAL)
[2018-05-28] MEDS: PREDNISONE 20 MG TAB PO SCH (08:37)
[2018-05-28] MEDS: CEFTRIAXONE SODIUM 1 GM in 0.9 % SODIUM CHLORIDE 100ML 100 ML IVPB SCH (08:50)
[2018-05-28] MEDS: FLUTICASONE PROPIONATE 50MCG NASAL 16 GM BTL SCH (09:40)
[2018-05-28] MEDS: AZITHROMYCIN 250 MG TABLET PO SCH (09:41)
[2018-05-28] MEDS: ENOXAPARIN 40 MG/0.4 ML SYR SC SCH (09:41)
[2018-05-28 09:49] LABS: ARTERIAL BLD GAS O2 SATURATION 91.9 % (95-98); ARTERIAL BLOOD GAS BASE EXCESS 11.8 mmol/L (-2 - 3); ARTERIAL BLOOD GAS HCO3 39.3 mmol/L (18-23); ARTERIAL BLOOD GAS PCO2 68.6 mmHg (35-48); ARTERIAL BLOOD GAS pH 7.38 (7.35-7.45); CARBOXYHEMOGLOBIN 1.3 % (0-1.5); O2 HEMOGLOBIN 90.9 % vol (94-99); TOTAL HEMOGLOBIN 12.1 g/dl (11.6-16)
[2018-05-28 09:53] LABS: ALLEN TEST PASS
--- NOTE | 2018-05-28 11:02 | Physician Progress Note ---
Subjective - Date Date of Physician Progress Note: 05/28/18 - Subjective Subjective Comment: Pt states that she feels a bit better than yesterday. No other complaints reported. Objective - Vital Signs Vital Signs: Vital Signs - Last 24 Hrs Temp Pulse Pulse Pulse Resp BP BP 05/28/18 09:41 91 H 20 05/28/18 09:24 98.1 F 97 H 32 H 153/94 05/28/18 06:00 97.9 F 91 H 30 H 142/80 05/28/18 05:15 116 H 30 H 05/28/18 05:00 89 05/28/18 04:00 80 05/28/18 03:00 73 05/28/18 02:00 89 05/28/18 01:00 109 H 05/28/18 00:00 114 H 05/27/18 23:44 98.0 F 114 H 24 125/79 05/27/18 23:27 115 H 30 H 05/27/18 23:00 126 H 05/27/18 22:00 116 H 05/27/18 21:30 28 H 05/27/18 21:20 30 H 05/27/18 21:00 110 H 05/27/18 20:47 118 H 40 H 05/27/18 20:00 98.4 F 120 H 117 H 28 H 132/69 05/27/18 19:20 05/27/18 19:10 135 H 05/27/18 18:10 110 H 26 H 05/27/18 18:00 98.6 F 124 H 32 H 109/71 05/27/18 17:55 114 H 28 H 05/27/18 15:03 114 H 25 H 05/27/18 14:06 114 H 24 05/27/18 14:00 99.1 F 121 H 28 H 160/94 05/27/18 11:43 101 H 20 Pulse Ox 05/28/18 09:41 96 05/28/18 09:24 94 L 05/28/18 06:00 91 L 05/28/18 05:15 93 L 05/28/18 05:00 88 L 05/28/18 04:00 84 L 05/28/18 03:00 94 L 05/28/18 02:00 84 L 05/28/18 01:00 98 05/28/18 00:00 95 05/27/18 23:44 96 05/27/18 23:27 93 L 05/27/18 23:00 97 05/27/18 22:00 92 L 05/27/18 21:30 05/27/18 21:20 88 L 05/27/18 21:00 90 L 05/27/18 20:47 93 L 05/27/18 20:00 88 L 05/27/18 19:20 95 05/27/18 19:10 84 L 05/27/18 18:10 05/27/18 18:00 96 05/27/18 17:55 93 L 05/27/18 15:03 90 L 05/27/18 14:06 94 L 05/27/18 14:00 92 L 05/27/18 11:43 96 - General General Appearance: Alert, Oriented x3, Cooperative, Mild distress (pt looks fatigued ) - Head Head exam: Normal inspection - Eye Eye exam: Normal appearance, EOMI. negative: Scleral icterus - ENT ENT exam: Normal exam, Mucous membranes moist, Normal external ear exam Ear exam: Normal external inspection Nasal Exam: Normal inspection. negative: Discharge Mouth exam: Normal external inspection - Neck Neck exam: Normal inspection, Full ROM. negative: Tenderness - Respiratory Respiratory exam: Prolonged expiratory, Wheezes (mild throughout, improved ). negative: Decreased breath sounds, Rales, Respiratory distress - Cardiovascular Cardiovascular Exam: Regular rate, Normal rhythm, Normal heart sounds - GI/Abdominal GI/Abdominal exam: Normal bowel sounds. negative: Tenderness - Rectal Rectal exam: Deferred - exam: Deferred - Extremities Extremities exam: Normal inspection, Full ROM - Neurological Neurological exam: Oriented X3, Other (pt looks fatigued ) - Psychiatric Psychiatric exam: Normal affect, Normal mood - Skin Skin exam: Dry, Intact, Normal color, Warm Assessment and Plan - Assessment and Plan (1) Hyperkalemia Current Visit: Yes Status: Acute Base Code: E87.5 - HYPERKALEMIA Comment: - resolved. (2) Pneumonia Current Visit: Yes Status: Acute Qualifiers: Pneumonia type: due to unspecified organism Laterality: bilateral Lung location: lower lobe of lung Qualified Code(s): J18.1 - Lobar pneumonia, unspecified organism Base Code: J18.9 - PNEUMONIA, UNSPECIFIED ORGANISM Priority: High Comment: - Rocephin 1g Q 12 hours - Azithromycin 500mg x 2, 250mg x1, continue 250mg for 2 more days - O2 PRN - Keep 02 sats b/t 88-92% given h/o COPD - Gentle fluids at 100ml/hr. - Rpt CXR ordered. (3) COPD with exacerbation Current Visit: Yes Status: Acute Base Code: J44.1 - CHRONIC OBSTRUCTIVE PULMONARY DISEASE W (ACUTE) EXACERBATION Priority: High Comment: - Continue duoneb and albuterol per resp - Continue prednisone as prescribed. - ABG shows pt is retaining C02, pH 7.3, bipap encouraged. Rpt ABG pending. (4) Tobacco abuse Current Visit: Yes Status: Chronic Base Code: Z72.0 - TOBACCO USE Comment : - No nicotine patches needed given 4-5 ciggs daily. (5) Chronic pain Current Visit: Yes Status: Chronic Base Code: G89.29 - OTHER CHRONIC PAIN Priority: Medium Comment: - Pt is poor historian and just claims b/l arm pain. - Continue home meds as prescribed. - Iburpofen also available PRN - Disposition Disposition: Home once stable and transitioned to oral medications. Results - Labs Result Diagrams: 05/28/18 06:34 05/28/18 06:34 Labs Last 24 Hours: Laboratory Results - last 24 hr 05/28/18 05/28/18 05/28/18 01:16 02:45 06:34 WBC 13.6 H RBC 4.05 Hgb 11.6 Hct 39.7 MCV 98.0 H MCH 28.6 MCHC 29.2 L RDW 15.7 H Plt Count 362 MPV 8.0 Neutrophils % 75.0 Eosinophils % Not Reportable Basophils % Not Reportable Lymphocytes 20.0 Monocytes 5.0 Platelet Estimate Normal RBC Morphology Normal Puncture Site Right wrist Right wrist pCO2 75.2 H* 71.7 H* pO2 100.0 66.0 L HCO3 36.1 H 36.7 H Oxyhemoglobin 97.0 88.1 L ABG pH 7.30 L 7.33 L ABG O2 Saturation 97.9 89.1 L ABG Base Excess 7.7 H 8.8 H Nathan Test Pass Pass Carboxyhemoglobin 0.9 0.9 Methemoglobin 0.0 0.3 Total Hemoglobin 11.8 11.7 Actual Respiration Rate 34.0 H 28.0 H FiO2 25.0 Sodium Potassium Chloride Carbon Dioxide Anion Gap BUN Creatinine Estimated GFR Random Glucose Calcium 05/28/18 05/28/18 06:34 09:30 WBC RBC Hgb Hct MCV MCH MCHC RDW Plt Count MPV Neutrophils % Eosinophils % Basophils % Lymphocytes Monocytes Platelet Estimate RBC Morphology Puncture Site Right wrist pCO2 68.6 H pO2 64.0 L HCO3 39.3 H Oxyhemoglobin 90.9 L ABG pH 7.38 ABG O2 Saturation 91.9 L ABG Base Excess 11.8 H Nahtan Test Pass Carboxyhemoglobin 1.3 Methemoglobin 0.0 Total Hemoglobin 12.1 Actual Respiration Rate Not Reportable FiO2 Sodium 147 H Potassium 4.4 Chloride 104 Carbon Dioxide 36.0 H Anion Gap 7.0 BUN 32 H Creatinine 0.6 Estimated GFR > 60 Random Glucose 98 Calcium 9.0 DVT/PE Assessment - Risk for VTE Risk for VTE: No Risk Level: High Risk Assessment Date: 05/26/18 Risk Assessment Time: 11:15 VTE Orders Placed or Will Be Placed: Yes - Active Medicaitons Current Medications: Current Medications Acetaminophen (Tylenol 500mg Tab) 500 mg PO Q6H PRN PRN Reason: PAIN - MILD(1-4)/FEVER Hydrocodone Bitart/Acetaminophen ([place] 7.5mg/325mg) 1 each PO Q4H PRN PRN Reason: PAIN - MILD(1-4)/FEVER Last Admin: 05/27/18 21:43 Dose: 1 each Albuterol/Ipratropium (Duoneb) 3 ml INH RESP.Q4H.[facility] Last Admin: 05/28/18 09:41 Dose: 3 ml Azithromycin (Zithromax) 250 mg PO DAILY [facility] Last Admin: 05/28/18 09:41 Dose: 250 mg Budesonide (Pulmicort) 0.5 mg INH RESP.BID [facility] Last Admin: 05/28/18 05:12 Dose: 0.5 mg Enoxaparin Sodium (Lovenox) 40 mg SC DAILY [facility] Last Admin: 05/28/18 09:41 Dose: 40 mg Fluticasone Propionate (Flonase) 2 spray NA DAILY [facility] Last Admin: 05/28/18 09:40 Dose: 2 spray Guaifenesin (Robitussin Dm) 10 ml PO Q4H PRN PRN Reason: COUGH Last Admin: 05/27/18 21:42 Dose: 10 ml Ceftriaxone Sodium 1 gm/ (Sodium Chloride) 100 mls @ 100 mls/hr IVPB Q12H [facility] Stop: 05/30/18 20:11 Last Infusion: 05/28/18 10:40 Dose: Infused Ibuprofen (Motrin 400mg) 800 mg PO Q8H PRN PRN Reason: PAIN - MILD TO MODERATE (1-7) Levalbuterol HCl (Xopenex (1.25mg/3ml)) 1.25 mg INH RESP.Q2H PRN PRN Reason: DIFFICULTY IN BREATHING Last Admin: 05/27/18 20:29 Dose: 1.25 mg Montelukast Sodium (Singulair) 10 mg PO QHS [facility] Last Admin: 05/27/18 21:43 Dose: 10 mg Prednisone (Prednisone 20mg) 60 mg PO DAILYWM [facility] Last Admin: 05/28/18 08:37 Dose: 60 mg Throat Lozenges (Chloraseptic) 1 ml MM Q1H PRN PRN Reason: SORE THROAT Last Admin: 05/27/18 21:43 Dose: 1 ml AMI Plan - Labs Result Diagrams: 05/28/18 06:34 05/28/18 06:34
[2018-05-28] MEDS: 0.9 % SODIUM CHLORIDE 1000ML 1,000 ML IV SCH (14:14)
[2018-05-28] MEDS: CEFTRIAXONE 1GM/50ML BAG 1 GM/50 ML BAG IVPB SCH (20:07)
[2018-05-28] MEDS: GUAIFENESIN/D-METH. 10 ML UDC PO PRN (20:12)
[2018-05-28] MEDS: HYDROCODONE/APAP 7.5/325MG TABLET PO PRN (20:13)
[2018-05-28] MEDS: PHENOL SORE THROAT SPRAY 177 ML BTL MM PRN (20:14)
[2018-05-28] MEDS: MONTELUKAST SODIUM 10MG TABLET PO SCH (22:00)
[2018-05-29] MEDS: 0.9 % SODIUM CHLORIDE 1000ML 1,000 ML IV SCH ×2 (00:55→06:38)
[2018-05-29] MEDS: LEVALBUTEROL HCL 1.25 MG/3 ML INH PRN (02:15)
[2018-05-29 06:11] LABS: HEMATOCRIT 41.2 % (35.0-47.0); HEMOGLOBIN 12.4 gm/dl (11.6-16.0); MEAN CELL VOLUME 95.6 fl (81-97); MEAN CORPUSCULAR HEMOGLOBIN 28.8 pg (27-33); MEAN CORPUSCULAR HGB CONC 30.1 g/dl (32-36); MEAN PLATELET VOLUME 8.1 fl (7.4-10.4); PLATELET COUNT 371 K/uL (130-400); RED BLOOD COUNT 4.31 M/uL (3.80-5.40); RED CELL DISTRIBUTION WIDTH 15.3 % (11.5-14.5); WHITE BLOOD COUNT W/O DIFF 10.4 K/uL (4.2-12.2)
[2018-05-29 06:20] LABS: BLOOD UREA NITROGEN 25 mg/dL (8-23); CREATININE 0.7 mg/dL (0.5-0.9); EST GLOMERULAR FILTRATION RATE > 60 mL/min; GLUCOSE,RANDOM 90 mg/dL (74-109)
[2018-05-29] MEDS: IPRATROPIUM/ALBUTEROL (0.5MG/3MG) NEB INH SCH ×2 (06:43→09:13)
[2018-05-29] MEDS: BUDESONIDE 0.5 MG/2 ML INH SCH (06:43)
[2018-05-29 06:53] LABS: ANISOCYTOSIS 1+; PLATELET ESTIMATE NORMAL (NORMAL)
--- NOTE | 2018-05-29 07:04 | RADIOLOGY REPORT ---
EXAM: PORTABLE CHEST HISTORY: SHORTNESS OF BREATH, DIFFICULTY IN BREATHING, COUGH. TECHNIQUE: A single AP portable view of the chest was obtained. Comparison: None. FINDINGS: The heart size is normal. Mild diffuse interstitial prominence. On this single exam this could be acute or chronic, perhaps representing some interstitial edema/pneumonitis or chronic fibrosis. Comparison with any old films would therefore be useful. The lungs do appear somewhat hyperinflated suggesting underlying COPD. No pleural effusion or pneumothorax evident. IMPRESSION: SOME BILATERAL INTERSTITIAL INFILTRATE OF UNCERTAIN AGE. UNDERLYING HYPERINFLATION SUGGESTING COPD. COMPARISON WITH OLD FILMS WOULD BE USEFUL. SHORT TERM FOLLOW-UP MAY ALSO BE USEFUL, PREFERABLY [facility]PRIGHT PA AND LATERAL. JOB NUMBER: [id number] MTDD
--- NOTE | 2018-05-29 07:11 | CT ANGIOGRAM REPORT ---
EXAM: CTA OF THE CHEST FOR PE WITH POST PROCESSING HISTORY: ELEVATED D-DIMER, DIFFICULTY IN BREATHING. TECHNIQUE: CTA of the chest was performed following the intravenous administration of iodated contrast media. Please see the medical record for IV contrast specifics. Post processing on an independent workstation was performed with multiple 3D MIP series obtained. Comparison: No prior CT. Comparison is made with the single view chest also from today on 05/25/18. FINDINGS: No definite PE identified. No thoracic aortic aneurysm or dissection is seen. No pleural or pericardial effusion evident. Some coronary artery calcification is noted. There is some mild mediastinal and bilateral hilar adenopathy. This is nonspecific. This could be acute related to infection or even neoplasm or could be related to a chronic process such as sarcoidosis. The lungs demonstrate fairly diffuse interstitial infiltrate with some areas of slight alveolar consolidation. This could also be acute or chronic. No pneumothorax evident. Some hypertrophic spurring in the thoracic spine. IMPRESSION: 1. NO DEFINITE PE IDENTIFIED. 2. DIFFUSE INTERSTITIAL INFILTRATE WITH SMALL AREAS OF ALVEOLAR COMPONENT PARTICULARLY IN THE PERIPHERY OF THE LUNGS. THIS COULD BE ACUTE OR CHRONIC WITH CONSIDERABLE DIFFERENCE IN THE DIFFERENTIAL DIAGNOSIS DEPENDING ON WHETHER THIS IS ACUTE OR CHRONIC. SIMILARLY, THERE IS MEDIASTINAL AND MILD BILATERAL HILAR ADENOPATHY WHICH COULD BE ACUTE OR CHRONIC. COMPARISON WITH PRIOR MEDICAL HISTORY IS SUGGESTED. JOB NUMBER: [id number] MTDD
--- NOTE | 2018-05-29 07:14 | RADIOLOGY REPORT ---
EXAM: CHEST HISTORY: HYPOXIA. TECHNIQUE: Two views of the chest were obtained. Comparison: 05/25/18. FINDINGS: The heart is not enlarged and there is no mediastinal mass. There are bilateral interstitial infiltrates similar to the previous study. No new abnormality. The lungs remain hyperinflated. IMPRESSION: 1. BILATERAL INTERSTITIAL LUNG INFILTRATES SIMILAR TO THE PREVIOUS STUDY. THIS MAY BE CHRONIC. ACUTE PROCESS DIFFICULT TO ENTIRELY EXCLUDE. CLINICAL CORRELATION AND FOLLOW-UP RECOMMENDED. 2. LUNGS HYPERINFLATED. 3. NO NEW ABNORMALITY. JOB NUMBER: [id number] [facility]
--- NOTE | 2018-05-29 07:16 | RADIOLOGY REPORT ---
EXAM: CHEST HISTORY: HYPOXIA. TECHNIQUE: Two views of the chest were obtained. Comparison: 05/26/18. FINDINGS: There are interstitial changes in the lungs bilaterally similar to the previous study. No focal area lung consolidation. The heart is not enlarged and there is no mediastinal mass. No new abnormality. IMPRESSION: INTERSTITIAL CHANGES IN THE LUNGS BILATERALLY SIMILAR TO THE PREVIOUS STUDY WITH NO NEW ABNORMALITY. JOB NUMBER: [id number] MTDD
--- NOTE | 2018-05-29 07:20 | RADIOLOGY REPORT ---
EXAM: CHEST, SINGLE VIEW HISTORY: PNEUMONIA AND RESPIRATORY DISTRESS. TECHNIQUE: A single AP semi-upright portable view of the chest was obtained. Comparison: Two view chest 05/27/18. Report of the prior study is not as yet available within PACS. FINDINGS: The patient is rotated a bit towards the right today. The heart size appears within normal limits. The lungs again appear hyperinflated suggesting COPD. Some mild persistent interstitial prominence likely representing fibrosis. When comparison is made with yesterday's study, no definite acute alveolar infiltrate is seen and no pleural effusion or pneumothorax evident. IMPRESSION: 1. HYPERINFLATION CONSISTENT WITH COPD PROBABLY WITH SOME FIBROSIS. 2. NO DEFINITE ACUTE INFILTRATE SEEN. JOB NUMBER: [id number] MTDD
[2018-05-29] MEDS: CEFTRIAXONE 1GM/50ML BAG 1 GM/50 ML BAG IVPB SCH (08:06)
[2018-05-29] MEDS: PREDNISONE 20 MG TAB PO SCH (08:07)
[2018-05-29] MEDS: FLUTICASONE PROPIONATE 50MCG NASAL 16 GM BTL SCH (10:06)
[2018-05-29] MEDS: ENOXAPARIN 40 MG/0.4 ML SYR SC SCH (10:07)
[2018-05-29] MEDS: AZITHROMYCIN 250 MG TABLET PO SCH (10:10)
[2018-05-29 10:15] LABS: ARTERIAL BLOOD GAS HCO3 35.4 mmol/L (18-23); ARTERIAL BLOOD GAS PCO2 52.2 mmHg (35-48); ARTERIAL BLOOD GAS pH 7.45 (7.35-7.45); METHEMOGLOBIN 0.3 % (0.0-1.5); O2 HEMOGLOBIN 93.7 % vol (94-99); TOTAL HEMOGLOBIN 12.2 g/dl (11.6-16)
[2018-05-29 10:16] LABS: ALLEN TEST PASS
[2018-05-29] MEDS ORDERED: BIFIDOBACTERIUM INFANTIS 4 MG CAPSULE PO SCH (10:45)
--- NOTE | 2018-05-29 10:49 | Physician Progress Note ---
Subjective - Date Date of Physician Progress Note: 05/29/18 - Subjective Subjective Comment: Pt is doing much better this AM. She was able to tolerate bipap for most of the night. Still complains of the sensation that she is unable to breath. Objective - Vital Signs Vital Signs: Vital Signs - Last 24 Hrs Temp Pulse Pulse Pulse Resp BP BP 05/29/18 09:29 73 24 05/29/18 09:06 97.8 F 102 H 30 H 148/67 05/29/18 08:18 103 H 30 H 05/29/18 06:44 85 32 H 05/29/18 06:00 98.1 F 80 28 H 150/92 05/29/18 04:00 57 L 05/29/18 03:00 89 05/29/18 02:27 101 H 36 H 05/29/18 02:00 78 05/29/18 01:01 62 05/29/18 01:00 97.8 F 71 28 H 138/77 05/29/18 00:00 92 H 05/28/18 23:00 79 05/28/18 22:00 90 05/28/18 21:36 94 H 24 05/28/18 21:00 74 05/28/18 20:00 93 H 24 05/28/18 19:59 98.2 F 96 H 32 H 165/87 05/28/18 19:03 108 H 05/28/18 19:00 114 H 05/28/18 18:00 98.1 F 116 H 30 H 145/84 05/28/18 16:34 90 18 05/28/18 16:29 80 18 05/28/18 14:30 98 H 26 H 05/28/18 14:15 111 H 05/28/18 13:24 98.4 F 94 H 30 H 147/78 Pulse Ox 05/29/18 09:29 92 L 05/29/18 09:06 93 L 05/29/18 08:18 05/29/18 06:44 91 L 05/29/18 06:00 92 L 05/29/18 04:00 90 L 05/29/18 03:00 84 L 05/29/18 02:27 88 L 05/29/18 02:00 98 05/29/18 01:01 91 L 05/29/18 01:00 91 L 05/29/18 00:00 97 05/28/18 23:00 93 L 05/28/18 22:00 94 L 05/28/18 21:36 94 L 05/28/18 21:00 92 L 05/28/18 20:00 95 05/28/18 19:59 94 L 05/28/18 19:03 93 L 05/28/18 19:00 66 L 05/28/18 18:00 90 L 05/28/18 16:34 95 05/28/18 16:29 92 L 05/28/18 14:30 92 L 05/28/18 14:15 89 L 05/28/18 13:24 92 L - General General Appearance: Alert, Oriented x3, Cooperative, No acute distress - Head Head exam: Normal inspection - Eye Eye exam: Normal appearance, EOMI. negative: Scleral icterus Pupils: Normal accommodation - ENT ENT exam: Normal exam, Mucous membranes moist, Normal external ear exam Ear exam: Normal external inspection Nasal Exam: Normal inspection. negative: Discharge Mouth exam: Normal external inspection Teeth exam: Normal inspection. negative: Dental caries - Neck Neck exam: Normal inspection, Full ROM. negative: Tenderness - Respiratory Respiratory exam: Prolonged expiratory, Wheezes (intermittently heard throughout , very mild, significantly improved. ). negative: Decreased breath sounds, Rales, Respiratory distress - Cardiovascular Cardiovascular Exam: Regular rate, Normal rhythm, Normal heart sounds - GI/Abdominal GI/Abdominal exam: Normal bowel sounds. negative: Tenderness - Rectal Rectal exam: Deferred - exam: Deferred - Extremities Extremities exam: Normal inspection, Full ROM - Back Back exam: Reports: Normal inspection, Full ROM. Denies: Rash noted - Neurological Neurological exam: Alert, Oriented X3 - Psychiatric Psychiatric exam: Normal affect, Normal mood - Skin Skin exam: Dry, Intact, Normal color, Warm Assessment and Plan - Assessment and Plan (1) Pneumonia Current Visit: Yes Status: Acute Qualifiers: Pneumonia type: due to unspecified organism Laterality: bilateral Lung location: lower lobe of lung Qualified Code(s): J18.1 - Lobar pneumonia, unspecified organism Base Code: J18.9 - PNEUMONIA, UNSPECIFIED ORGANISM Priority: High Comment: - Switched from rocephin to Cefdinir 300mg BID. - Azithromycin 500mg x 2, 250mg x2, continue 250mg for 1 more day - O2 PRN - Keep 02 sats b/t 88-92% given h/o COPD - Gentle fluids at 100ml/hr. - Rpt CXR - no interval worsening of infitrates. (2) COPD with exacerbation Current Visit: Yes Status: Acute Base Code: J44.1 - CHRONIC OBSTRUCTIVE PULMONARY DISEASE W (ACUTE) EXACERBATION Priority: High Comment: - Continue duoneb and albuterol per resp - Continue prednisone as prescribed. - Tolerated bipap overnight. ABG pH has normalized to 7.48. Pt improving. O2 NC during the day. - Likely has VICKI and will need CPAP nightly. (3) Physical deconditioning Current Visit: Yes Status: Acute Base Code: R53.81 - OTHER MALAISE Comment : - 2/2 to recent COPD exacerbation and PNA. - PT/OT to eval and treat. (4) Tobacco abuse Current Visit: Yes Status: Chronic Base Code: Z72.0 - TOBACCO USE Comment : - No nicotine patches needed given 4-5 ciggs daily. (5) Chronic pain Current Visit: Yes Status: Chronic Base Code: G89.29 - OTHER CHRONIC PAIN Priority: Medium Comment: - Pt is poor historian and just claims b/l arm pain. - Continue home meds as prescribed. - Iburpofen also available PRN - Disposition Disposition: Pt would like to be transferred to [facility] for pulm consult. I explained that she is improving and they will likely not accept the transfer. I agree that she needs a pulm consult but I believe that she could see them outpt next week. I have called [facility] one call and they will call me back to accept/reject transfer. Results - Labs Result Diagrams: 05/29/18 05:58 05/29/18 05:58 Labs Last 24 Hours: Laboratory Results - last 24 hr 05/29/18 05/29/18 05/29/18 05:58 05:58 10:07 WBC 10.4 RBC 4.31 Hgb 12.4 Hct 41.2 MCV 95.6 MCH 28.8 MCHC 30.1 L RDW 15.3 H Plt Count 371 MPV 8.1 Neutrophils % 65.0 Band Neutrophils % 1.0 Eosinophils % Not Reportable Basophils % Not Reportable Lymphocytes 24.0 Monocytes 9.0 Metamyelocytes 1.0 Platelet Estimate Normal Anisocytosis 1+ Puncture Site Right wrist pCO2 52.2 H pO2 75.0 L HCO3 35.4 H Oxyhemoglobin 93.7 L ABG pH 7.45 ABG O2 Saturation 95.0 ABG Base Excess 10.0 H Nathan Test Pass Carboxyhemoglobin 1.0 Methemoglobin 0.3 Total Hemoglobin 12.2 Actual Respiration Rate 24.0 H FiO2 Sodium 141 Potassium 4.4 Chloride 97 L Carbon Dioxide 34.0 H Anion Gap 10.0 BUN 25 H Creatinine 0.7 Estimated GFR > 60 Random Glucose 90 Calcium 9.4 DVT/PE Assessment - Risk for VTE Risk for VTE: No Risk Level: High Risk Assessment Date: 05/26/18 Risk Assessment Time: 11:15 VTE Orders Placed or Will Be Placed: Yes - Active Medicaitons Current Medications: Current Medications Acetaminophen (Tylenol 500mg Tab) 500 mg PO Q6H PRN PRN Reason: PAIN - MILD(1-4)/FEVER Hydrocodone Bitart/Acetaminophen ([place] 7.5mg/325mg) 1 each PO Q4H PRN PRN Reason: PAIN - MILD(1-4)/FEVER Last Admin: 05/28/18 20:13 Dose: 1 each Albuterol/Ipratropium (Duoneb) 3 ml INH RESP.Q4H.[facility] Last Admin: 05/29/18 09:13 Dose: 3 ml Azithromycin (Zithromax) 250 mg PO DAILY [facility] Last Admin: 05/29/18 10:10 Dose: 250 mg Budesonide (Pulmicort) 0.5 mg INH RESP.BID [facility] Last Admin: 05/29/18 06:43 Dose: 0.5 mg Cefdinir (Cefdinir) 300 mg PO BID [facility] Enoxaparin Sodium (Lovenox) 40 mg SC DAILY [facility] Last Admin: 05/29/18 10:07 Dose: 40 mg Fluticasone Propionate (Flonase) 2 spray NA DAILY [facility] Last Admin: 05/29/18 10:06 Dose: 2 spray Sodium Chloride () 1,000 mls @ 100 mls/hr IV .Q10H [facility] Last Infusion: 05/29/18 06:40 Dose: 0 mls/hr Ibuprofen (Motrin 400mg) 800 mg PO Q8H PRN PRN Reason: PAIN - MILD TO MODERATE (1-7) Levalbuterol HCl (Xopenex (1.25mg/3ml)) 1.25 mg INH RESP.Q2H PRN PRN Reason: DIFFICULTY IN BREATHING Last Admin: 05/29/18 02:15 Dose: 1.25 mg Montelukast Sodium (Singulair) 10 mg PO QHS [facility] Last Admin: 05/28/18 22:00 Dose: 10 mg Prednisone (Prednisone 20mg) 60 mg PO DAILYWM [facility] Last Admin: 05/29/18 08:07 Dose: 60 mg Throat Lozenges (Chloraseptic) 1 ml MM Q1H PRN PRN Reason: SORE THROAT Last Admin: 05/28/18 20:14 Dose: 1 ml AMI Plan - Labs Result Diagrams: 05/29/18 05:58 05/29/18 05:58
--- NOTE | 2018-05-29 11:57 | Physician Addendum ---
Addendum (Physician) Went over to see the pt and the pt's daughter. I explained that I spoke with Dr. Tate (hospitalist for admission) at [facility] and he also agrees that she does not need to be transferred and pulmonology c/s outpt would suffice. I also stated that the pt will likely require oxygen for a few weeks until her lungs heal and reach her regular capacity since her lungs are damaged from h/o heavy smoking. I explained that it is not unexpected that the pt stay in the hospital more than 4 days given that she has significant COPD exacerbation and bilateral PNA. The daughter was extremely upset by the news and refused to continue treatment at this facility. She states that she will take her mother to another ER. I explained that she is risking her mother's health and wellbeing by leaving AMA and that she requires oxygen measurement technician currently.I also explained that on ambulation her O2 sats drop < 88% and she may pass out and this is extremely dangerous. I stated that leaving AMA is not suggested and I am extremely concerned regarding the pt's safety. I also explained the risks fully to the pt. Despite understanding the risks, the pt signed the AMA paperwork and refused to continue treatment at this facility. 05/29/18 11:48
--- NOTE | 2018-05-29 12:14 | Inpatient Certification ---
Inpatient Certification Admit to inpatient care: Based on my medical assessment, after consideration of patient's risk factors (age, co-morbidities and patient presenting symptoms and acuity), I expect that this patient will remain in the hospital greater than or equal to two midnights and that the services needed warrant inpatient care because: Patient Risk Factors: [hypoxic requiring O2] Estimated length of stay: [4] The patient may reasonably be expected to be discharged or transferred to a hospital within 96 hours after admission to [facility]. Services needed: [respiratory therapy, possibly PT/OT, oxygen] Post hospital care (if known): [unsure] I certify that my determination is in accordance with my understanding of Medicare requirements for reasonable and necessary inpatient services. 05/29/18 12:13
--- NOTE | 2018-05-29 14:21 | Occupational Therapy Tx Note ---
Occupational Therapy Tx Note - Treatment Note Occupational Therapy Treatment Note: Detail (Unable to complete OT evaluation as pt left facility AMA.)
[2018-05-29] MEDS ORDERED: CEFDINIR 300 MG CAPSULE PO SCH (22:00)
== END 2018-05-29 12:00 | disposition left against medical advice (07) | DRG 195 ==
LOC: ER 16:17 → MEDSURG 19:56
PROVIDERS: ADMIT Internal Medicine; ATTEND Internal Medicine
DX: J44.1 Chronic obstructive pulmonary disease with (acute) exacerbation (principal); J18.1 Lobar pneumonia, unspecified organism; Z72.0 Tobacco use; G89.29 Other chronic pain; E87.5 Hyperkalemia; Z53.21 Procedure and treatment not carried out due to patient leaving prior to being seen by health care provider
CPT/HCPCS: 36600; 71045; 71046; 71275; 80048; 82375; 82803; 83880; 84484; 85027; 85379; 85730; 87070; 93005; 93010; 94640; 94660; 94761; 96365; 96374; 99223; 99232; 99233; 99285; J0696; J1650; J2930; J7512; J7613